=== PATIENT | female | born 1950 | race Caucasian/White ===

== ENCOUNTER → 2019-04-28 14:45 | Outpatient (CLI) | payer OTHER, SELFPAY ==
--- NOTE | 2019-04-28 | DI.MG.S_ITS ---
BILATERAL DIGITAL SCREENING MAMMOGRAM 3D/2D WITH CAD: 04/28/2019 CLINICAL: Routine screening. Comparison is made to exams dated: 04/27/2015 mammogram and 09/20/2010 mammogram - [facility]. The tissue of both breasts is heterogeneously dense. This may lower the sensitivity of mammography. Current study was also evaluated with a Computer Aided Detection (CAD) system. There is an irregular equal density focal asymmetry with an indistinct margin in the right breast at 12 o'clock posterior depth. There is architectural distortion associated with the focal asymmetry. No other significant masses, calcifications, or other findings are seen in either breast. IMPRESSION: INCOMPLETE: NEEDS ADDITIONAL IMAGING EVALUATION The irregular equal density focal asymmetry in the right breast is indeterminate. Mediolateral and spot compression views as well as additional views with possible ultrasound are recommended. This exam was interpreted at Station ID: [id number]. NOTE: For mammograms, a report in lay terms will be sent to the patient. Approximately 15% of breast malignancies will not be visualized mammographically. In the management of a palpable breast mass, a negative mammogram must not discourage biopsy of a clinically suspicious lesion. Electronically Signed By: Rui troncoso/duy:04/29/2019 08:10:26 letter sent: Additional Imaging Needed ACR BI-RADS Category 0: Incomplete [id number]
== END ==
PROVIDERS: Visit Provider Family Medicine
DX: Z12.31 Encounter for screening mammogram for malignant neoplasm of breast (principal)
CPT/HCPCS: 77063; 77067

== ENCOUNTER → 2019-05-29 13:22 | Outpatient (CLI) | payer OTHER, SELFPAY ==
--- NOTE | 2019-05-29 | DI.US.S_ITS ---
LIMITED ULTRASOUND OF RIGHT BREAST AND AXILLA: 05/29/2019 CLINICAL: Additional evaluation requested from prior study. Comparison is made to exams dated: 05/29/2019 mammogram, 04/28/2019 mammogram - [facility], 04/27/2015 mammogram, and 09/20/2010 mammogram - [facility]. Color flow and real-time ultrasound of the right breast 12 o'clock, and axilla regions were performed on the areas of interest. There is a 1.3 cm x 0.6 cm x 1 cm oval mass with a spiculated margin in the right breast at 12 o'clock posterior depth. This oval mass is hypoechoic with posterior acoustic shadowing. This correlates with mammography findings. Color flow imaging demonstrates that there is vascularity present. No significant abnormalities were seen sonographically in the right axilla. IMPRESSION: HIGHLY SUGGESTIVE OF MALIGNANCY The 1.3 cm x 0.6 cm x 1 cm oval mass in the right breast is highly suggestive of malignancy. An ultrasound guided biopsy is recommended. The findings were discussed with the patient at the conclusion of the study by Dr. Smith. This exam was interpreted at Station ID: [id number]. Electronically Signed By: Rui Macdonald M.D. ddp/:05/29/2019 15:18:38 letter sent: Biopsy Required Ultrasound BI-RADS: 5 Highly suggestive of malignancy
--- NOTE | 2019-05-29 | DI.MG.S_ITS ---
UNILATERAL RIGHT DIGITAL DIAGNOSTIC MAMMOGRAM 3D/2D WITH ADDITIONAL VIEWS: 05/29/2019 CLINICAL: Additional evaluation requested from prior study. Comparison is made to exams dated: 04/28/2019 mammogram - [facility], 04/27/2015 mammogram, and 09/20/2010 mammogram - [facility]. The tissue of right breast is heterogeneously dense. This may lower the sensitivity of mammography. There is an irregular equal density mass with a spiculated margin in the right breast at 12 o'clock posterior depth. No other significant masses or calcifications are seen in the breast. IMPRESSION: INCOMPLETE: NEEDS ADDITIONAL IMAGING EVALUATION The irregular equal density mass in the right breast is indeterminate. An ultrasound is recommended. This exam was interpreted at Station ID: [id number]. NOTE: For mammograms, a report in lay terms will be sent to the patient. Approximately 15% of breast malignancies will not be visualized mammographically. In the management of a palpable breast mass, a negative mammogram must not discourage biopsy of a clinically suspicious lesion. Electronically Signed By: Rui troncoso/duy:05/29/2019 14:17:49 ACR BI-RADS Category 0: Incomplete [id number]
== END ==
PROVIDERS: PCP Nurse Practitioner Family; Visit Provider Family Medicine
DX: R92.8 Other abnormal and inconclusive findings on diagnostic imaging of breast (principal); N63.15 Unspecified lump in the right breast, overlapping quadrants
CPT/HCPCS: 76642; 77065; G0279

== ENCOUNTER → 2019-06-20 12:48 | Outpatient (CLI) | payer OTHER, SELFPAY ==
--- NOTE | 2019-06-20 | DI.US.S_ITS ---
ULTRASOUND GUIDED BIOPSY RIGHT BREAST USING VACUUM DEVICE WITH MARKING DEVICE INSERTED AND POST DIGITAL MAMMOGRAPHIC IMAGIN06/20/2019 CLINICAL: Right breast mass. PATIENT CONSENT: Risks (minor bleeding, infection, vasovagal reaction and repeat procedure), benefits and alternatives were explained to the patient and written informed consent was obtained. Correlation is made to exams dated: 06/20/2019 mammogram, 05/29/2019 ultrasound, 05/29/2019 mammogram, 04/28/2019 mammogram - [facility], 04/27/2015 mammogram, and 09/20/2010 mammogram - [facility]. An ultrasound guided biopsy using real-time ultrasound was performed for the concerning mass located in the right breast at 12 o'clock posterior depth 5 cm from the nipple. This was described on the previous ultrasound report. The skin was prepped in the usual manner. 5 mL of 1% lidocaine and 5 mL of 1% lidocaine with epinephrine was used for local anesthesia. A skin erick was made in the breast. The abnormality was approached from the lateral aspect. A 13 gauge biopsy needle was placed adjacent to the abnormality under ultrasound guidance. Once the needle was documented to be in the correct location, six specimens were obtained using the Mammotome biopsy system. A Ball-shaped clip was inserted into the biopsy cavity. Pressure was held over the biopsy site until hemostatsis was achieved, and then for an additional 10 minutes after. A skin adhesive was applied to the access site. Post procedure digital mammographic imaging demonstrates the location device at the targeted area. There was a small post-biopsy hematoma in the superior right breast post biopsy. The specimens were sent to the laboratory for pathological analysis. IMPRESSION: ULTRASOUND GUIDED BIOPSY BENIGN Ultrasound guided biopsy of the mass in the right breast at 12 o'clock posterior depth 5 cm from the nipple was successful. Final pathology results per pathologist Dr. Janak Blackman identified benign breast parenchyma with dense stromal fibrosis and rare calcifications associated with benign duct. Negative for in situ and invasive carcinoma. Pathology findings are concordant with imaging. Recommend follow-up diagnostic mammogram and targeted right breast ultrasound in 6 months to demonstrate stability of this area of concern. Consider MRI if there is continued clinical concern. These results will be communicated to the patient's referring provider. This exam was interpreted at Station ID: [id number]. Dell Obando M.D. ecl/:06/30/2019 10:02:39
--- NOTE | 2019-06-20 | PATH_ITS ---
[facility] Accession Number: [id number] . 01 Material submitted: . breast - RIGHT BREAST 12:00 . 01 Clinical history: . 5 CM . 01 Diagnosis: Right Breast, 12 o'clock, 5 cm FN, Biopsy: Benign breast parenchyma with dense stromal fibrosis and rare calcifications associated with benign duct. Negative for in situ and invasive carcinoma. [facility] 06/24/2019 1345 Local . 01 Comment: Initial and deeper levels have been examined. . Clinical and radiologic correlation is recommended to ensure that the area of interest has been adequately sampled. . As part of ongoing quality consultant, this case has also been reviewed by Dr. Radha Meza who agrees with the interpretation. . 01 Electronically signed: . Janak Blackman MD, Pathologist NPI- [id number] . 01 Gross description: . Specimen is received in a formalin-filled container, labeled right breast 12 o'clock 5 cm FN and consists of multiple lynn to yellow fibrofatty soft tissue fragments, 2.5 x 1.5 x 0.5 cm in aggregate. The specimen is inked blue, filtered through a mesh bag, and entirely submitted within A1. Please note, formalin time on container is 1504 on 06/20/2019. Gross time is 1100 on 06/21/2019. ([id number]) /MRV 06/22/2019 0307 Local . 01 Pathologist provided ICD-10: N63.10 . 01 CPT . 495343 Performed at: 01 [facility] [address] [place] [address] [address], [place], [place] [id number] MD Rui Ceron MD Phone: [phone]
--- NOTE | 2019-06-20 | DI.MG.S_ITS ---
UNILATERAL RIGHT DIGITAL DIAGNOSTIC MAMMOGRAM POST-NEEDLE BIOPSY: 06/20/2019 CLINICAL: Right breast mass. Comparison is made to exams dated: 05/29/2019 mammogram, 04/28/2019 mammogram - [facility], 04/27/2015 mammogram - [facility], 05/29/2019 ultrasound, and 06/20/2019 ultrasound biopsy - [facility]. The tissue of right breast is heterogeneously dense. This may lower the sensitivity of mammography. There is a new marker clip in the appropriate position in the superior right breast at 12 o'clock posterior depth. This marker clip placement is at the biopsy site. IMPRESSION: POST PROCEDURE MAMMOGRAM FOR MARKER PLACEMENT There is a new marker clip in the appropriate position in the superior right breast at 12 o'clock posterior depth. This marker clip placement is at the biopsy site. This exam was interpreted at Station ID: [id number]. NOTE: For mammograms, a report in lay terms will be sent to the patient. Approximately 15% of breast malignancies will not be visualized mammographically. In the management of a palpable breast mass, a negative mammogram must not discourage biopsy of a clinically suspicious lesion. Electronically Signed By: Dell Obando M.D. ecl/:06/20/2019 17:33:25 ACR BI-RADS Category Post-procedure mammogram for marker placement
== END ==
PROVIDERS: Family Provider Nurse Practitioner Family; PCP Nurse Practitioner Family; Visit Provider Family Medicine
DX: N60.31 Fibrosclerosis of right breast (principal)
CPT/HCPCS: 19083; 77065

== ENCOUNTER 2019-07-01 11:09 | Outpatient (CLI) | payer OTHER, SELFPAY ==
[2019-07-01] VITALS (7 sets, daily range): BP systolic 126–160; BP diastolic 82–96; PULSE 56–61; RESP 16–20; TEMP 36.2; O2SAT 96–99
--- NOTE | 2019-07-01 11:11 | DI.RAD.S_ITS ---
PROCEDURE: PAIN C/T INTERLAMINAR INJECT INDICATIONS: SPINAL STENOSIS FINDINGS: Fluoroscopic spot filming was performed to verify placement of spinal needles at the C6-C7 translaminar lateral level(s), as labeled on the films. Appropriate location(s) of the needle tip(s) was confirmed by injection of iodinated contrast. IMPRESSION: Successful low cervical posterior translaminar needle tip localization for epidural steroid injection. Dictated by: Johnathan Thornton M.D. on 07/01/2019 at 13:51 Approved by: Johnathan Thornton M.D. on 07/01/2019 at 13:52
[2019-07-01] MEDS: MIDAZOLAM 5 MG/5 ML VIAL IV (12:04)
[2019-07-01] MEDS: LIDOCAINE 1% 20 ML 5 ML INJ (12:08)
[2019-07-01] MEDS: IOPAMIDOL 15 ML VIAL 3 ML INJ (12:08)
[2019-07-01] MEDS: DEXAMETHASONE 10 MG/ML VIAL 30 MG INJ (12:09)
--- NOTE | 2019-07-01 12:13 | PC.NURSE ---
ASSISTING PT OFF TABLE AND TRANSPORTING TO POST PROC AREA IN STABLE CONDITION.
--- NOTE | 2019-07-01 12:18 | PM.PROC.1 ---
Procedures Date/Time Date of procedure: 07/01/19 Time of procedure: 12:18 General Procedure description: PREOP DIAGNOSIS 1. CERVICAL STENOSIS, 2. CERVICAL HNP WITH UPPER EXTREMITY RADICULAR FEATURES, POST OP DIAGNOSIS 1. CERVICAL STENOSIS, 2. CERVICAL HNP WITH UPPER EXTREMITY RADICULAR FEATURES, PROCEDURES 1. FLUORSCOPICALLY GUIDED CONTRAST CONTROLLED INTERLAMINAR EPIDURAL STEROID INJECTION - C6/7 TL SYL PHYSICIAN: Kj Malone, DO INDICATIONS Pooja is referred by Dr. De La Cruz for treatment of Cervical HNP with Upper Extremity Paresthesias. FINDINGS Cervical Stenosis due to disc deterioration and nerve root irritation and nerve root irritation DESCRIPTION OF PROCEDURE Fluoroscopically guided, contrast-controlled C6/7 translaminar epidural steroid injection with conscious sedation. Following review of allergy and review of potential side effects and complications, including, but not necessarily limited to, infection, allergic reaction, local tissue breakdown, temporary as well as permanent nerve injury, stroke, paralysis, and possible , the patient indicated that patient understood and agreed to proceed. An informed consent document was signed by the patient, witnessed by a nurse, and placed in the patient's chart. Additionally, other treatment options including modalities, medications, and physical therapy were reviewed with the patient. After review of previous anaesthesic history and IV conscious sedation the patient was deemed safe to proceed with todays procedure with IV conscious sedation as ASA class II designation. Safety time-out was performed to confirm patient ID, procedure to be performed and site of procedure. IV sedation was accomplished with 2mg of Versed administered by the RN after DO order, titrated to patient comfort during the course of the procedure while the patient remained responsive to all verbal commands. In the prone position, following sterile prep and drape of the cervical region, the C6/7 translaminar space was identified fluoroscopically. The skin was anesthetized via a 25-gauge 1.5-inch needle with 1% lidocaine solution. At this point, a 25-gauge, 2.5-inch short bevel spinal needle was atraumatically introduced and advanced under fluoroscopic guidance into epidural space at the C6/7 translaminar space. Depth was confirmed on lateral view. Radiological data, including multiple fluoroscopic views of the cervical spine, reveal a spinal needle at the C6/7 translaminar space. Lateral views then show placement of the needle in the epidural space. Subsequent views show contrast material flowing superiorly and inferiorly in the epidural space. DSA fluoroscopy with live contrast injection, once again, confirmed no vascular or intrathecal uptake. At this point, using loss of resistance technique with saline and air, the epidural space was entered. Following negative aspiration, injection of approximately 1.5 cc of Isovue-200 with live fluoroscopy in the AP view confirmed epidural flow in the epidural space without vascular or intrathecal uptake observed. Subsequently, a test dose of 1 cc of 1% lidocaine solution was injected and patient was observed for two minutes without signs or symptoms of complications, including abdominal pain, shortness of breath, bilateral upper or lower extremity weakness, nausea and vomiting, prior to steroid injection. At this point, 2cc or 20mg of dexamethasone was then injected without incident. The patient tolerated the procedure well without signs or symptoms of complications prior to being transferred to the recovery area for further monitoring, The patient was then transferred to the recovery area where they were observed for an appropriate period of time after the injection. The patient reported a VAS score of 6 prior to the procedure and a post-procedure VAS of 0. Total Fluoroscopy Time: 37.0 seconds Total Conscious Time: 24min POST OP INSTRUCTIONS The patient was provided a Pain Log to continue to record their response to the target-specific procedure prior to follow-up visit with the referring provider. Additionally, specific post-injection care instructions and a contact number to our office were provided if concerns arise regarding possible complications associated with the procedure are suspected. Kj Malone DO Complications: none
--- NOTE | 2019-07-01 15:51 | PC.NURSE ---
Late entry: Post procedure note--Patient arrived for post procedure monitoring at 1220. Drowsy but awake. Transferred to recliner from / with stand by assist. Received handoff report from Mario Dee. VSS and O2 Sats WNL. Pain level 0/10 with no unusual numbness or tingling. Discharge instructions given and explained to patient and spouse with good understanding. Stable for discharge to cafeteria via wheelchair with .
== END 2019-07-01 12:36 | disposition home or self-care (01) ==
PROVIDERS: PCP Nurse Practitioner Family; Visit Provider Physical Medicine & Rehabilitation
DX: M48.02 Spinal stenosis, cervical region (principal); M50.123 Cervical disc disorder at C6-C7 level with radiculopathy
CPT/HCPCS: 62321; 99152; J1100; J2250; J3010

== ENCOUNTER → 2021-06-03 12:17 | Outpatient (CLI) | payer MEDICARE, OTHER, SELFPAY ==
--- NOTE | 2021-06-03 | DI.MRI.S_ITS ---
PROCEDURE: MR CERVICAL SPINE WO CON INDICATIONS: Paresthesia of both legs and left arm. frequency of micturition TECHNIQUE: Noncontrast sagittal T1 spin echo and T2 fast spin echo, sagittal STIR, foraminal oblique sagittal T2 fast spin echo, and axial gradient echo or T2 fast spin echo through the cervical spine. COMPARISON: [facility], MR, CERVICAL SPINE W&W/O CONTRAST, 01/29/2014, 18:30. [facility], MR, C-SPINE WITHOUT CONTRAST, 09/22/2009, 14:20. FINDINGS: Image quality: This examination is limited by involuntary motion artifact. Alignment and Curvature: There is minimal to mild retrolisthesis seen at the C4-C5 level. Bone Marrow: Marrow demonstrates normal overall signal. Spinal Cord: Visualized spinal cord has normal size and signal. No cerebellar tonsillar herniation. Paraspinous Soft Tissues: No paravertebral masses. Prevertebral soft tissues are normal in thickness. C2-C3: Mild loss of disc height is seen. Loss of disc signal is seen. Minimal to mild disc osteophyte complex is seen. No neural foraminal or central canal narrowing can be seen. These imaging findings have progressed compared to the prior study. C3-C4: Moderate loss of disc height is seen. Loss of disc signal is seen. Moderate disc osteophyte complex is seen, with a central/left disc osteophyte protrusion. There is moderate right-sided and prominent left-sided facet hypertrophy seen. There is moderate to severe bilateral neural foraminal narrowing seen, left worse than right. Moderate central canal narrowing is seen, with associated mass effect upon the ventral spinal cord. These degenerative changes are worse than in 2014. C4-C5: Moderate to severe loss of disc height and disc signal can be seen. At least moderate disc osteophyte complex is seen. Uncovertebral joint hypertrophy is seen at this level. A central disc osteophyte protrusion is seen. Moderate to prominent facet hypertrophy is seen, left worse than right. Moderate to severe central canal narrowing is seen. At least moderate central canal narrowing is seen, with associated mass effect upon the ventral spinal cord. These degenerative changes are slightly worse than in 2014. C5-C6: The disc height is well-preserved. Loss of disc signal is seen at this level. Moderate generalized disc osteophyte complex is seen. There is [id number] right-sided and prominent left-sided facet hypertrophy seen. There is moderate to severe bilateral neural foraminal narrowing seen. Xppg-ox-bofpwlnu central canal narrowing is seen at this level. These degenerative changes are mildly more prominent than in 2014. C6-C7: At least moderate loss of disc height and disc signal can be seen. At least moderate disc osteophyte complex is seen. There is a central disc osteophyte protrusion seen. There is moderate right-sided and prominent left-sided facet hypertrophy seen. Moderate to severe bilateral neural foraminal narrowing can be seen. Moderate to severe central canal narrowing is seen, with associated mass effect upon the ventral spinal cord. These imaging findings have progressed compared to the prior study. C7-T1: The disc height is well-preserved. Loss of disc signal is seen at this level. Mild to moderate disc osteophyte complex is seen. At least moderate facet hypertrophy can be seen. There is moderate left-sided and mild right-sided neural foraminal narrowing seen. No significant central canal narrowing is seen. These imaging findings have progressed compared to the prior study. IMPRESSION: Multiple levels of cervical spine degenerative change are seen, which are worst at C4-C5 and C5-C6. The degenerative changes have progressed compared to 2014. Dictated by: Edgar Oneal M.D. on 06/03/2021 at 12:41 Approved by: Edgar Oneal M.D. on 06/03/2021 at 12:47
== END ==
PROVIDERS: Referring Provider Internal Medicine; Visit Provider Internal Medicine
DX: R35.0 Frequency of micturition (principal); R20.2 Paresthesia of skin; M47.812 Spondylosis without myelopathy or radiculopathy, cervical region
CPT/HCPCS: 72141

== ENCOUNTER → 2023-04-30 12:51 | Outpatient (CLI) | payer MEDICARE, OTHER, SELFPAY ==
--- NOTE | 2023-04-30 12:54 | DI.RAD.S_ITS ---
PROCEDURE: XR LUMBAR SPINE MIN 4V INDICATIONS: LOW BACK PAIN TECHNIQUE: 5 views of the lumbar spine were acquired, including bilateral oblique views. COMPARISON: Outside Film, MR, MR LUMBAR SPINE WITHOUT CONTRAST, 03/22/2022, 13:16. FINDINGS: Bones: 5 yuh-xct-flmcksw vertebrae are present. There is grade 1 anterolisthesis of L5 on S1. Moderate compression fracture of L1. No suspicious bony lesions. There is degenerative disease, moderate at L4-L5 and L5-S1, mild at other levels. Bilateral facet arthropathy, moderate at L4-L5 and L5-S1, mild at other levels. Soft tissues: Overlying bowel gas pattern is normal. Severe atherosclerotic calcifications. Multiple calcifications in pelvis are most likely pelvic phleboliths. Oblique images: No pars defects. IMPRESSION: 1. Multilevel degenerative disc and facet disease in lumbar spine. 2. Grade 1 anterolisthesis of L5 on S1. 3. Moderate compression fracture of L1. Dictated by: Vinnie Fuentes M.D. on 04/30/2023 at 14:00 Approved by: Vinnie Fuentes M.D. on 04/30/2023 at 14:05
== END ==
PROVIDERS: PCP Student in an Organized Health Care Education/Training Program; Referring Provider Anesthesiology; Visit Provider Anesthesiology
DX: M51.16 Intervertebral disc disorders with radiculopathy, lumbar region (principal); M51.17 Intervertebral disc disorders with radiculopathy, lumbosacral region; M47.26 Other spondylosis with radiculopathy, lumbar region; M47.27 Other spondylosis with radiculopathy, lumbosacral region; M48.56XA Collapsed vertebra, not elsewhere classified, lumbar region, initial encounter for fracture; M54.50 Low back pain, unspecified
CPT/HCPCS: 72110; 99214

== ENCOUNTER 2023-07-11 12:44 | Outpatient (CLI) | payer MEDICARE, OTHER, SELFPAY ==
[2023-07-11] VITALS (8 sets, daily range): BP systolic 140–178; BP diastolic 80–90; PULSE 59–67; RESP 11–20; TEMP 36.3; O2SAT 95–99
--- NOTE | 2023-07-11 13:30 | DI.RAD.S_ITS ---
PROCEDURE: PAIN L INTERLAMINAR/CAUDAL INJ INDICATIONS: RADICULOPATHY COMPARISON: None. FINDINGS: Fluoroscopic spot filming was performed to verify placement of spinal needles at the L5-S1 level(s), as labeled on the films. Appropriate location(s) of the needle tip(s) was confirmed by injection of iodinated contrast. IMPRESSION: L5-S1 needle placement. Dictated by: Nerissa Salas M.D. on 07/11/2023 at 22:32 Approved by: Nerissa Salas M.D. on 07/11/2023 at 22:33
--- NOTE | 2023-07-11 15:55 | P.PCN_ITS ---
Date/Time/Diagnoses Date of procedure: 07/11/23 Time of procedure: 13:30 Procedure Notes Physician: Dale Kovacs Total Fluoroscopy time (seconds): 17 Total sedation minutes: 10 Procedure in detail & Post-procedure care: L5-S1 Interlaminar Epidural Steroid Injection Indications: Pooja is presenting for treatment of lumbar radiculopathy with low back and leg pain. Preoperative diagnosis: Lumbar radiculopathy Postoperative diagnosis: Same Focused Examination: Ax3 Mood and affect are normal Vital Signs: VSS ASA: 2 Consent: Following review of allergies and potential side effects/complications, including, but not necessarily limited to, infection, allergic reaction, local tissue breakdown, stroke, temporary or permanent nerve injury, paralysis, and possible , the patient indicated that they understood and agreed to pro ceed.? An informed consent document was signed by the patient, witnessed by a nurse and placed in the patient's chart.? Additionally, other treatment options including medications and physical therapy were reviewed with the patient. All questions were answered. Site was then marked. Anesthesia: After review of previous anesthetic history and IV conscious sedation, the patient was deemed safe to proceed with today's procedure with IV conscious sedation. IV sedation was accomplished with 1 mg Versed administered by the RN after order by Dr. Kovacs. Sedation was titrated to patient comfort during the course of the procedure. Patient remained responsive to all verbal commands. Position: Prone Monitoring: NIBP, Pulse oximetry, 3 lead EKG Needle used: 18 G 3.5? Tuohy Contrast: Isovue 300M Injectate: Dexamethasone 10 mg with 1% lidocaine 2 mL Technique: The skin was prepped with chloraprep and then draped in a sterile fashion. Time out was performed as per protocol. Oxygen applied via NC. Skin and subcutaneous structures of the needle entry site was then infiltrated with 3 mL of lidocaine 1%. Under AP, lateral and contralateral oblique fluoroscopic control, the Tuohy needle was guided into the L5-S1 epidural space. The space was accessed with loss of resistance technique. Isovue 300M was then injected and the spread was consistent with the epidural space. There was no evidence for intravascular or intrathecal uptake. After negative aspiration, the above- mentioned injectate was then slowly administered and the needle withdrawn. The patient expressed no unusual discomfort or paresthesias during the injection. Band-Aids applied to injection sites. EBL: less than 1 ml Complications: None Post Procedure: Patient was taken to the recovery and monitored. The patient was provided a Pain Log to continue to record the patient's response to the target- specific procedure prior to the patient's follow-up visit with the referring physician. Patient was stable upon discharge. Detailed post procedure instructions were provided. Patient was asked to call in the event of worsening pain, fever, weakness, numbness or bladder or bowel incontinence.
== END 2023-07-11 14:20 | disposition home or self-care (01) ==
LOC: RAD 12:46
PROVIDERS: PCP Student in an Organized Health Care Education/Training Program; Referring Provider Anesthesiology; Visit Provider Anesthesiology
DX: M54.16 Radiculopathy, lumbar region (principal)
CPT/HCPCS: 62323; 99152; J1100; J2250

== ENCOUNTER → 2024-02-05 12:40 | Outpatient (CLI) | payer MEDICARE, OTHER, MEDICAID, SELFPAY ==
--- NOTE | 2024-02-05 13:13 | EKG_ITS ---
[address] [address] Test Date: 2024-02-05 Pat Name: Pooja Brar Department: Room: Gender: Female Angiography Technologist: : [id number] Requested By: Order Number: [id number] Reading MD: Rich Ronquillo Measurements Intervals [place] Rate: 62 P: 35 CA: 150 QRS: -16 QRSD: 88 T: 43 QT: 412 QTc: 418 Interpretive Statements Normal sinus rhythm Electronically Signed On 02-06-2024 19:42:50 PDT by Rich Ronquillo
[2024-02-05 13:39] LABS: Add Manual Diff / Slide Review NO; Basophils Absolute Auto 0 /uL (0-100); Basophils Percent Auto 0.7 % (0-2); Eosinophils Absolute Auto 100 /uL (0-450); Eosinophils Percent Auto 1.7 % (2-4); Hematocrit 38.7 % (36-46); Lymphocytes Absolute Auto 1500 /uL (1100-4500); Lymphocytes Percent Auto 26.3 % (25-40); Mean Corpuscular HGB Conc 33.5 % (30-36); Mean Corpuscular Hemoglobin 31.9 PG (26-34); Mean Corpuscular Volume 95.1 fL (80-100); Monocytes Absolute Auto 400 /uL (0-900); Monocytes Percent Auto 6.8 % (3-14); Neutrophils Absolute Auto 3700 /uL (1500-7000); Neutrophils Percent Auto 64.5 % (50-75); Platelet Count 203 X10^3/uL (150-400); Red Blood Cell Count 4.07 X10^6/uL (4.0-5.2); Red Cell Distribution Width 12.3 % (11.6-14.8); White Blood Cell Count 5.8 X10^3/uL (4.5-11.0)
[2024-02-05 13:49] LABS: Hemoglobin A1C% w Est Avg Glu 5.4 % (4.0-6.0)
[2024-02-05 14:01] LABS: BUN Creatinine Ratio 34.8 (6-22); Blood Urea Nitrogen 23 mg/dL (7-17); Calcium 9.3 mg/dL (8.4-10.2); Carbon Dioxide 30 mmol/L (22-32); Chloride 104 mmol/L (98-107); Estimated Glomerular Filt Rate > 60 mL/min (>60); Glucose 85 mg/dL (80-110); HEMOLYSIS < 15 (0-50); Potassium 4.7 mmol/L (3.4-5.1); Sodium 139 mmol/L (137-145)
== END ==
PROVIDERS: PCP Student in an Organized Health Care Education/Training Program; Referring Provider Orthopaedic Surgery Orthopaedic Surgery of the Spine; Visit Provider Orthopaedic Surgery Orthopaedic Surgery of the Spine
DX: Z01.818 Encounter for other preprocedural examination (principal); R73.9 Hyperglycemia, unspecified; Z01.812 Encounter for preprocedural laboratory examination
CPT/HCPCS: 36415; 80048; 83036; 85025; 93005